=== PATIENT | female | born 1965 | race Caucasian/White ===

== ENCOUNTER 2021-07-11 08:04 | Emergency (ER) | payer OTHER, MEDICARE ==
[~2021-07-11] VITALS: Ht 170.2 cm; Wt 86.2 kg
--- NOTE | 2021-07-11 08:20 | NUR ---
BIB C/O L LEG COMPLETELY GIVING OUT ON HER WHEN SHE GOT OUT OF BED THIS MORNING AT 0745 AND IS CONCERNED OF STROKE. LAST KNOWN WELL TIME MIDNIGHT LAST NIGHT. HX OF ISCHEMIC THALAMIC STROKE 5 YEARS AGO, LEAVING WITH CHRONIC LEFT SIDED PAIN. L LEG CONTINUES TO BE WEEK THIS MORNING. DENIES SLURRED SPEECH, MEMORY CHANGES, N/V, HEADACHE. PT TOOK 1 ASPIRIN THIS MORNING. A&OX4, AMBULATORY BUT LIMPING ON 1 LEG DUE TO WEAKNESS, SPEAKS CLEARLY W NO EVIDENCE OF APHASIA, NEG FOR R/L LEG DRIFT, ABLE TO HOLD ARMS UP FOR 10 SECONDS WITHOUT DRIFT. PT HAVING DIFFICULTY TOUCHING LEFT FINGER TO THE NOSE WHEN EYES CLOSED, COMPARED TO THE RIGHT FINGER. GLUCOSE IS 98.
--- NOTE | 2021-07-11 08:31 | NUR ---
BLOOD SAMPLE OBTAINED AND SENT TO LAB
--- NOTE | 2021-07-11 08:32 | NUR ---
STARTED LINE, BLOOD SPECIMEN COLLECTED AND SENT TO THE LAB
[2021-07-11 08:34] LABS: BASOPHILS # (AUTO) 0.1 K/uL (0.0-0.2); BASOPHILS % (AUTO) 0.8 % (0.0-2.0); EOSINOPHILS % (AUTO) 8.6 % (0.0-6.0); HEMATOCRIT 41 % (33-45); HEMOGLOBIN 13.4 g/dL (11.5-14.8); LYMPHOCYTES # (AUTO) 3.4 K/uL (0.8-4.8); LYMPHOCYTES % (AUTO) 45.4 % (20.0-44.0); MEAN CORPUSCULAR HGB CONC 33 g/dl (31.0-36.0); MEAN CORPUSCULAR VOLUME 90 fL (82-100); MONOCYTES # (AUTO) 0.5 K/uL (0.1-1.30); MONOCYTES % (AUTO) 6.4 % (2.0-12.0); NEUTROPHILS # (AUTO) 2.9 K/uL (1.8-8.9); NEUTROPHILS % (AUTO) 38.8 % (43.0-81.0); PLATELET COUNT (AUTO) 362 K/uL (150-450); RED BLOOD CELL COUNT(AUTO) 4.52 MIL/uL (4.0-5.2); WHITE BLOOD COUNT (AUTO) 7.6 K/uL (4.3-11.0)
--- NOTE | 2021-07-11 08:43 | NUR ---
X-RAY TECH AT THE BEDSIDE
[2021-07-11 08:45] LABS: CALCIUM, SERUM 8.2 mg/dL (8.5-10.1); CARBON DIOXIDE 31 mmol/L (21-32); CHLORIDE 105 mmol/L (98-107); GLUCOSE 106 mg/dL (74-106); POTASSIUM 3.5 mmol/L (3.5-5.1); SODIUM SERUM 143 mmol/L (136-145); UREA NITROGEN, BLOOD 12 mg/dL (7-18)
[2021-07-11] MEDS ORDERED: CT SWABBABLE VALVE TRANS SET 1 EA INFUS.SET MC ONE (08:54)
[2021-07-11] MEDS ORDERED: IOHEXOL-350 100 ML VIAL IV ONE (08:54)
[2021-07-11] MEDS ORDERED: IV NS 0.9% 250 ML IV ONE (08:54)
--- NOTE | 2021-07-11 09:00 | NUR ---
THE PATIENT IS TAKEN TO CT
--- NOTE | 2021-07-11 09:10 | NUR ---
THE PATIENT IS BACK FROM CT
--- NOTE | 2021-07-11 09:18 | NUR ---
Corry sage in ED - 07/11/21 at 0918 by ROBERT report given to nurse h[facility] bed 2
--- NOTE | 2021-07-11 09:19 | NUR ---
COVID SAMPLE OBTAINED AND SENT TO LAB
[2021-07-11] MEDS ORDERED: IV NS 0.9% 1,000 ML BAG IV ONE (09:30)
[2021-07-11] MEDS ORDERED: hydrALAZINE HCL IV 20 MG VIAL IV ONE (09:30)
[2021-07-11] MEDS ORDERED: diphenhydrAMINE HCL 50 MG/ML VIAL IV ONE (09:30)
[2021-07-11] MEDS ORDERED: diphenhydrAMINE HCL 50 MG/ML VIAL ONE (09:36)
[2021-07-11 09:40] LABS: CHOLESTEROL 279 mg/dL (<200); HDL CHOLESTEROL 70 mg/dL (40-60); LDL 173 mg/dL (0-99); TRIGLYCERIDES 92 mg/dL (30-150)
[2021-07-11] MEDS ORDERED: hydrALAZINE HCL IV 20 MG VIAL ONE (09:44)
--- NOTE | 2021-07-11 09:48 | NUR ---
REQUESTED TELE BED FROM NURSING SUP.
[2021-07-11] MEDS ORDERED: LAMO100T17 PO (09:53)
[2021-07-11] MEDS ORDERED: ZOLP10TA2 PO (09:53)
[2021-07-11] MEDS ORDERED: CLON0.5T23 PO (09:53)
[2021-07-11] MEDS ORDERED: CLON0.1T PO (09:53)
[2021-07-11] MEDS ORDERED: METH5TAB2 PO (09:53)
[2021-07-11] MEDS ORDERED: HYDROMORPHONE 1 MG/1 ML DISP.SYRIN ONE (09:54)
[2021-07-11] MEDS ORDERED: HYDROMORPHONE 1 MG/1 ML DISP.SYRIN IV ONE (10:00)
[2021-07-11] MEDS ORDERED: CLOPIDOGREL BISULFATE 75 MG TABLET PO ONE (10:30)
[2021-07-11] MEDS ORDERED: CLOPIDOGREL BISULFATE 75 MG TABLET ONE (10:35)
--- NOTE | 2021-07-11 10:42 | NUR ---
PT ACCEPTED BY [facility].
--- NOTE | 2021-07-11 11:12 | NUR ---
REPORT GIVEN TO ALEX GLYNN. ROOM 306-2
[2021-07-11 11:16] LABS: POTASSIUM 3.9 mmol/L (3.5-5.1)
[2021-07-11 11:28] LABS: ALBUMIN 3.7 g/dL (3.4-5.0); BILIRUBIN,TOTAL 0.2 mg/dL (0.2-1.0); TOTAL PROTEIN, SERUM 7.1 g/dL (6.4-8.2)
--- NOTE | 2021-07-11 11:55 | NUR ---
PT WANTED TO LEAVE AMA. SIGNED AMA PAPERWORK.
[2021-07-11] MEDS ORDERED: ENOXAPARIN SODIUM 40 MG/0.4 ML DISP.SYRIN SQ SCH (12:00)
[2021-07-11] MEDS ORDERED: BLOOD SUGAR DIAGNOSTIC 1 EACH STRIP IN SCH ×2 (12:00)
--- NOTE | 2021-07-11 12:01 | NUR ---
Patient discharged to home in stable condition. Written and verbal after care instructions given. Patient verbalizes understanding of instruction. Addendum: 07/11/21 at 1202 by ROBERT Discharged home DONTA
--- NOTE | 2021-07-11 12:01 | NUR ---
IV removed. Catheter intact and site benign. Pressure and 4x4 applied to site. No bleeding noted.
[2021-07-11 12:05] VITALS: BP 154/74
[2021-07-11 12:22] LABS: THYROID STIMULATING HORMONE 3.218 uIU/mL (0.358-3.74)
--- NOTE | 2021-07-11 15:46 | NUR ---
SW attempted to complete post stroke depression scale with pt. alyssia code stroke. However, pt. has left AMA per nursing.
[2021-07-11] MEDS ORDERED: SIMVASTATIN 40 MG TABLET PO SCH (22:00)
[2021-07-11] MEDS ORDERED: SIMVASTATIN 20 MG TABLET PO SCH (22:00)
== END 2021-07-11 12:07 | disposition home or self-care (01) ==
LOC: ER 08:08 → TELE 11:40 → UNDOADMIN 11:40
DX: G45.9 Transient cerebral ischemic attack, unspecified (principal); Z53.29 Procedure and treatment not carried out because of patient's decision for other reasons; Z20.822 Contact with and (suspected) exposure to COVID-19; I69.398 Other sequelae of cerebral infarction; G89.29 Other chronic pain; I10 Essential (primary) hypertension; Z88.5 Allergy status to narcotic agent; Z79.891 Long term (current) use of opiate analgesic; R94.31 Abnormal electrocardiogram [ECG] [EKG]
CPT/HCPCS: 36415; 70450; 70496; 70498; 71045; 80048; 80053; 80061; 82962; 83880; 84443; 84484 ×2; 85025; 85730; 87426; 93005; 96361; 96374; 96375; 99285; C9803; J0360; J1170; J1200; J7050; Q9967